=== PATIENT | female | born 1935 | race Caucasian/White ===

== ENCOUNTER → 2020-01-17 | Emergency (ER) | payer OTHER ==
[~2020-01-17] VITALS: Ht 157.5 cm; Wt 49.9 kg
[~2020-01-17] MED LIST: CALCIUM CHLOR(10%) 100MG/ML 10ML SYRINGE IV ONE; EPINEPHrine HCL 1 MG/10 ML SYRG IV ONE; EPINEPHrine HCL 1 MG/10 ML SYRG ONE; SODIUM BICARBONATE 8.4 % INJ 50ML VIAL IV ONE; SODIUM BICARBONATE 8.4% INJ 50ML SYRINGE IV ONE
[2020-01-17 09:56] VITALS: BP 105/62
== END | disposition home or self-care (01) ==
LOC: EDBD 09:50 → ER 09:50
DX: I46.9 Cardiac arrest, cause unspecified (principal)
CPT/HCPCS: 31500; 92950; 99285; J0171